=== PATIENT | female | born 1985 | race Caucasian/White ===

== ENCOUNTER → 2023-09-15 13:14 | Outpatient (BNVA) | payer BC, SELFPAY | PROVIDERS: Family Provider Family Medicine; PCP Family Medicine; Visit Provider Family Medicine | DX: Z13.1 Encounter for screening for diabetes mellitus (principal); Z13.220 Encounter for screening for lipoid disorders; Z51.81 Encounter for therapeutic drug level monitoring; R53.81 Other malaise; R53.83 Other fatigue | CPT/HCPCS: 80053; 80061; 83036; 84439; 84443; 85025 ==

== ENCOUNTER 2023-09-29 06:49 | Outpatient (CLI) | payer BC, SELFPAY ==
--- NOTE | 2023-09-29 07:00 | US_ITS ---
WS: [id number] RIGHT UPPER QUADRANT ULTRASOUND HISTORY: Hepatic cyst COMPARISON: CT 10/09/2011, CT abdomen 10/09/2011 Liver: 14.3 cm in length. Normal size liver. There is a hyperechoic nodule measuring 1.1 x 1.0 x 0.8 cm in the superior liver. This is probably the RIGHT lobe of the liver. This was not identified on e prior study. There is an additional cyst towards the superior RIGHT lobe of liver measuring 1.2 x 1 .1 x 1.0 cm. This cyst was identified on the prior lumbar CT of 07/02/2022. No bile duct dilatation. Portal Vein: Normal hepatopetal flow with monophasic waveform. Gallbladder: Normally distended gallbladder with no stones or wall thickening. CBD: 0.2 cm Pancreas: Normal size and echogenicity. Right kidney: 10.5 cm in length. Normal size and echogenicity. No hydronephrosis or mass. Aorta and IVC: Unremarkable abdominal aorta and IVC. No ascites. IMPRESSION: 1. Benign hepatic cyst RIGHT lobe corresponds to the finding on the recent lumbar spine CT. Cyst yoon sures 1.2 x 1.1 x 1.0 cm and was not present on the prior CT from 2011. 2. New hyperechoic mass in the superior liver measures 1.1 x 1.0 x 0.8 cm. This is most likely most consistent with a hemangioma. This was not identified on prior studies. To confirm diagnosis of MR li freddy with and without contrast or multiphase CT can be performed. 3. Otherwise negative.
== END 2023-09-29 06:50 | disposition home or self-care (01) ==
LOC: RAD 06:49
PROVIDERS: PCP Family Medicine; Visit Provider Family Medicine
DX: K76.89 Other specified diseases of liver (principal)
CPT/HCPCS: 76705